=== PATIENT | female | born 1970 | race African-American/Black ===

== ENCOUNTER 2016-08-16 08:40 | Emergency (ER) | payer OTHER ==
[~2016-08-16] VITALS: Ht 180.3 cm; Wt 149.5 kg
[2016-08-16 08:41] VITALS: BP 206/95; PULSE 86; RESP 20; TEMP 97.6; O2SAT 100
[2016-08-16] MEDS ORDERED: HUMA50IN SQ (08:56)
[2016-08-16] MEDS ORDERED: LANTUS2P SQ (08:56)
[2016-08-16 08:58] VITALS: BP 172/82; PULSE 91; RESP 22
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
[2016-08-16] MEDS ORDERED: IBUP800T23 PO (09:26)
[2016-08-16] MEDS ORDERED: ROBA500T PO (09:26)
[2016-08-16] MEDS ORDERED: ORPHENADRINE INJ 60 MG/2 ML AMP IM ONE (09:30)
[2016-08-16] MEDS ORDERED: KETOROLAC TROMETHAMINE 60 MG/2 ML (IM) VIAL IM ONE (09:30)
== END 2016-08-16 09:55 | disposition home or self-care (01) ==
LOC: NEPK 08:40
DX: S46.812A Strain of other muscles, fascia and tendons at shoulder and upper arm level, left arm, initial encounter (principal); S39.012A Strain of muscle, fascia and tendon of lower back, initial encounter; E11.9 Type 2 diabetes mellitus without complications; V49.49XA Driver injured in collision with other motor vehicles in traffic accident, initial encounter; Y92.410 Unspecified street and highway as the place of occurrence of the external cause
CPT/HCPCS: 96372; 99283; J1885; J2360